=== PATIENT | female | born 1960 | race Caucasian/White ===

== ENCOUNTER → 2020-04-09 13:12 | Outpatient (REF) | payer OTHER, SELFPAY | LOC: ANHLAB 13:12 | PROVIDERS: PCP Family Medicine; Visit Provider Nurse Practitioner Family | DX: D49.2 Neoplasm of unspecified behavior of bone, soft tissue, and skin (principal); D18.01 Hemangioma of skin and subcutaneous tissue | CPT/HCPCS: 88305 ==

== ENCOUNTER 2021-01-06 07:47 | Outpatient (CLI) | payer OTHER, SELFPAY ==
--- NOTE | ~2021-01-06 | DEXA_ITS ---
Bone Density Report Name: Lila Galloway Age: 60 Sex: Female Ethnicity: White Date of : 1960 Indication: postmenopausal; hysterectomy; Referring Provider: ANGELIKA FRAGA Study: Bone densitometry was performed. Exam Date: January 06, 2021 Accession number: [id number] Bone Density: Region BMD T-score Z-score Classification AP Spine (L1-L4) 1.244 1.8 3.1 Normal Femoral Neck (Left) 0.837 -0.1 1.1 Normal Total Hip (Left) 1.055 0.9 1.8 Normal Total Hip Bilateral Avg 1.051 0.9 1.8 Normal Femoral Neck (Right) 0.766 -0.7 0.5 Normal Total Hip (Right) 1.046 0.9 1.7 Normal World Health Organization criteria for BMD impression classify patients as: Normal (T-score at or above -1.0), Osteopenia (T-score between -1.0 and -2.5), or Osteoporosis (T-score at or below -2.5). 10-year Fracture Risk: FRAX not reported because: All T-scores for Spine Total, Hip Total, Femoral Neck at or above -1.0 Previous Exams: Region Exam Age BMD T-score BMD Change BMD Change Date g/cm2 vs Baseline vs Previous AP Spine(L1-L4) 01/06/2021 60 1.244 1.8 0.033(2.7%)# 0.015(1.3%) 07/04/2015 54 1.228 1.6 0.017(1.4%)# 0.017(1.4%)# 05/03/2013 52 1.211 1.5 Total Hip(Left) 01/06/2021 60 1.055 0.9 0.013(1.2%)# 0.024(2.3%) 07/04/2015 54 1.031 0.7 -0.011(-1.0%)# -0.011(-1.0%)# 05/03/2013 52 1.042 0.8 Total Hip(Right) 01/06/2021 60 1.046 0.9 -0.022(-2.1%)# 0.036(3.6%)* 07/04/2015 54 1.010 0.6 -0.058(-5.5%)# -0.058(-5.5%)# 05/03/2013 52 1.068 1.0 *Denotes significance at 95% confidence level, LSC for AP Spine = 0.022 g/cm2, LSC for Total Hip = 0.027 g/cm2 Clinical Information Provided by Patient: Has used the following medications: Vitamin D, BIODEGRADABLE HRT Has the following medical conditions: Hysterectomy Patient maximum height was 63.5 Menopause Age: 44 Drinks caffeinated beverages Onset of menses at age 14 Number of children 0 Impression: The patient has normal bone mass. No significant bone loss was observed. Discussion: BONE DENSITY IS ABOVE THE MINIMUM DESIRABLE LEVEL AT ALL SKELETAL SITES TESTED. This patient?s bone mineral density is above the minimum desirable level (T-score -1.0 or better) at all sites measured. The patient should follow a healthful lifestyle (good nutrition with adequate calcium and vitamin D, and appropriate weight-bearing exercise). Follow-Up: Consider repeating this study in 5
--- NOTE | ~2021-01-06 | MM_ITS ---
EXAMINATION: MM screening margarito BI w jamilah HISTORY: Screening mammogram TECHNIQUE: Craniocaudal and mediolateral oblique 3-D tomosynthesis images were obtained and synthetic 2-D images were generated. CAD analysis was submitted and interpreted. COMPARISON: 08/08/2019, 08/08/2018, 07/18/2017 bilateral digital screening mammogram examinations BREAST PARENCHYMAL COMPOSITION: There are scattered areas of fibroglandular density. FINDINGS: There is no evidence of suspicious mass, calcification, or architectural distortion to sugg est malignancy in either breast. There has been no suspicious interval change. IMPRESSION: 1. No mammographic evidence of malignancy. 2. Recommend routine screening mammography in one year. BI-RADS Category 1: Negative Reviewed, dictated and finalized at location A.
== END 2021-01-06 07:48 | disposition home or self-care (01) ==
LOC: ANHIMG 07:50
PROVIDERS: PCP Family Medicine; Visit Provider Obstetrics & Gynecology Gynecology
DX: Z12.31 Encounter for screening mammogram for malignant neoplasm of breast (principal); Z13.820 Encounter for screening for osteoporosis
CPT/HCPCS: 77063; 77067; 77080

== ENCOUNTER 2021-07-15 08:25 | Outpatient (CLI) | payer OTHER, SELFPAY ==
--- NOTE | ~2021-07-15 | XR_ITS ---
EXAMINATION: XR chest 2V DATE: 07/15/2021 08:47 INDICATION: Cough TECHNIQUE: PA and lateral views of the chest are obtained. COMPARISON: 09/13/2018 FINDINGS: The lungs are free of acute opacities. There is no pleural effusion or pneumothorax. The ca rdiomediastinal silhouette is normal. There is moderate thoracic spondylosis. IMPRESSION: 1. No acute cardiopulmonary abnormality. Reviewed, dictated and finalized at location B.
== END 2021-07-15 08:26 | disposition home or self-care (01) ==
LOC: ANHIMG 08:29
PROVIDERS: PCP Family Medicine; Visit Provider Nurse Practitioner Family
DX: R05.9 Cough, unspecified (principal)
CPT/HCPCS: 71046

== ENCOUNTER → 2021-10-27 10:24 | Outpatient (CLI) | payer OTHER, SELFPAY ==
--- NOTE | ~2021-10-27 | XR_ITS ---
XR cervical spine min 6V DATE: 10/27/2021 10:36 INDICATION: Neck pain TECHNIQUE: AP, open-mouth, lateral, swimmer's views. Flexion and extension lateral views COMPARISON: None FINDINGS: There is straightening of the cervical spine. C1 and C2 are normally aligned and the odontoid process is intact. No fracture or dislocation or lock ed facet or prevertebral soft tissue swelling. No cervical instability on flexion or extension. There is mild loss of height at C5-6 interspace. IMPRESSION: Straightening of cervical spine. Mild loss of interspace height at C5-6 Reviewed, dictated and finalized at location B. DECORATOR
== END ==
PROVIDERS: Visit Provider Family Medicine
DX: M54.2 Cervicalgia (principal)
CPT/HCPCS: 72052

== ENCOUNTER 2022-02-19 08:14 | Outpatient (CLI) | payer OTHER, SELFPAY ==
--- NOTE | ~2022-02-19 | MM_ITS ---
EXAMINATION: MM screening margarito BI w jamilah HISTORY: Screening mammogram, family history of breast cancer in her mother. TECHNIQUE: Craniocaudal and mediolateral oblique 3-D tomosynthesis images were obtained and synthetic 2-D images were generated. CAD analysis was submitted and interpreted. COMPARISON: Prior mammograms dating back to 07/13/2016 BREAST PARENCHYMAL COMPOSITION: There are scattered areas of fibroglandular density. FINDINGS: There is no suspicious mass, calcification, or architectural distortion to suggest malignan cy in either breast. There has been no suspicious interval change. IMPRESSION: 1. No mammographic evidence of malignancy. 2. Recommend routine screening mammography in one year. BI-RADS Category 1: Negative Reviewed, dictated and finalized at location A.
== END 2022-02-19 08:15 | disposition home or self-care (01) ==
LOC: ANHIMG 08:16
PROVIDERS: PCP Family Medicine; Visit Provider Obstetrics & Gynecology Gynecology
DX: Z12.31 Encounter for screening mammogram for malignant neoplasm of breast (principal)
CPT/HCPCS: 77063; 77067

== ENCOUNTER 2023-02-23 15:07 | Outpatient (CLI) | payer OTHER, SELFPAY ==
--- NOTE | ~2023-02-23 | MM_ITS ---
EXAMINATION: MM screening margarito BI w jamilah HISTORY: Screening mammogram TECHNIQUE: Craniocaudal and mediolateral oblique 3-D tomosynthesis images were obtained and synthetic 2-D images were generated. CAD analysis was submitted and interpreted. COMPARISON: 02/19/2022, 01/06/2021, 08/08/2019 bilateral screening mammogram examinations BREAST PARENCHYMAL COMPOSITION: There are scattered areas of fibroglandular density. FINDINGS: There is no evidence of suspicious mass, calcification, or architectural distortion to sugg est malignancy in either breast. There has been no suspicious interval change. IMPRESSION: 1. No mammographic evidence of malignancy. 2. Recommend routine screening mammography in one year. BI-RADS Category 1: Negative Reviewed, dictated and finalized at location A.
== END 2023-02-23 15:08 | disposition home or self-care (01) ==
LOC: ANHIMG 15:07
PROVIDERS: PCP Family Medicine; Visit Provider Obstetrics & Gynecology Gynecology
DX: Z12.31 Encounter for screening mammogram for malignant neoplasm of breast (principal)
CPT/HCPCS: 77063; 77067

== ENCOUNTER 2023-06-20 09:47 | Outpatient (CLI) | payer OTHER, SELFPAY ==
--- NOTE | ~2023-06-20 | XR_ITS ---
EXAMINATION: XR lumbar spine 6V w bending DATE: 06/20/2023 12:16 INDICATION: Low back pain, unspecified. TECHNIQUE: 7 views of lumbar spine including flexion and extension views were obtained. COMPARISON: None. FINDINGS: There is 3 degrees dextrocurvature of thoracolumbar spine. There is no abnormal motion with flexion or extension. Vertebral body heights are normal. Intervertebral disc heights are normal. The re are endplate osteophytes at multiple levels. There is multilevel facet joint osteoarthritis, sever e bilaterally at L4-L5 and L5-S1. IMPRESSION: 1. Mild lumbar spondylosis. Reviewed, dictated and finalized at location A. IMPRESSION: 1. Mild lumbar spondylosis.
== END 2023-06-20 09:48 | disposition home or self-care (01) ==
LOC: ANHIMG 09:50
PROVIDERS: PCP Family Medicine; Visit Provider Family Medicine
DX: M43.06 Spondylolysis, lumbar region (principal)
CPT/HCPCS: 72114

== ENCOUNTER 2023-07-21 09:48 | Day surgery (SDC) | payer OTHER, SELFPAY ==
[2023-07-01 14:47] VITALS: BMI 26.5
[2023-07-05 14:43] VITALS: BMI 26.5
--- NOTE | 2023-07-20 14:09 | PM.HPGS ---
History of Present Illness History of Present Illness Consent: Risks, benefits, and alternatives have been discussed and questions answered. Patient agrees to proceed with procedure. Chief complaint: Z86.010 Personal history of colon polyps Narrative: Lila Galloway is a 62 year old female referred for colon cancer screening. 5 years ago. She had a polyp removed about 10 years ago. Review of Systems Review of Systems: All systems reviewed & are unremarkable except as noted in HPI and below PMFSH Past Medical History Medical History BMI 27.0-27.9,adult Diabetes type 2, controlled Dysmetabolic syndrome X Elevated liver function tests Gastro-esophageal reflux disease without esophagitis Hypertension Hypothyroidism Insomnia Low back pain Major depression Mixed hyperlipidemia Onychomycosis PSVT (paroxysmal supraventricular tachycardia) Right lateral epicondylitis Screen for colon cancer Tachycardia Surgical History Surgical History History of cosmetic plastic surgery 2005 History of hysterectomy 2003 Family History Family History Father Hypertension Alzheimer's disease Mother Hypertension Breast cancer Living in assisted living Sibling No problems noted. 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 Gender identity (if verbalized by the patient): Female Spiritual care concerns: No Meds Home Medications and Allergies Home Medications Medication Instructions Recorded Confirmed Type cholecalciferol (vitamin D3) 25 25 mcg PO DAILY 01/29/22 07/05/23 History mcg (1,000 unit) capsule coenzyme Q10 30 mg capsule (CoQ-10) See Rx Instructions PO DAILY 01/29/22 07/05/23 History phosphatidylcholine 1,200 mg 1 cap PO DAILY 01/29/22 07/05/23 History capsule ezetimibe 10 mg tablet (Zetia) 10 mg PO DAILY #90 tabs 12/09/22 07/05/23 Rx metoprolol succinate 25 mg See Rx Instructions .Route 01/28/23 07/05/23 Rx tablet,extended release 24 hr .COMPLEX #90 tabs thyroid (pork) 90 mg tablet (PATROL OFFICER 180 mg PO DAILY #180 tabs 05/06/23 07/05/23 Rx Thyroid) cyclobenzaprine 10 mg tablet 10 mg PO QHS #30 tabs 06/20/23 07/05/23 Rx metformin 500 mg tablet,extended 2,000 mg PO DAILY 07/05/23 History release 24 hr meloxicam 15 mg tablet 15 mg PO DAILY #90 tabs 07/17/23 Rx Allergies Allergy/AdvReac Type Severity Reaction Status Date / Time No Known Allergies Allergy Verified 07/21/23 11:19 Exam Const: General: alert Orientation/consciousness: patient oriented x3 Resp: Auscultation: clear to auscultation bilaterally Cardio: Rhythm: regular rhythm GI: GI Palp: Yes Soft to palpation and No Tenderness to palpation present (GI) Neuro: General: patient oriented x3 Assessment and Plan Assessment and plan (1) Encounter for screening colonoscopy: Code(s): Z12.11 - Encounter for screening for malignant neoplasm of colon Status: Acute Assessment and Plan: Colonoscopy with possible biopsy or polypectomy or cautery or injection of substances.
--- NOTE | 2023-07-21 08:09 | WPDANESEPPF ---
Anes - Initial Pre Proc Eval Procedure: Operation Date: 07/21/23 12:30 Proposed Procedures p Diagnostic Colonoscopy - Jake Hawk MD Date/Time: 07/21/23 08:09 Surgeon: Jake Hawk MD Pre Op Diagnosis: Z86.010 Personal history of colon polyps Patient Data Age: 62 Gender: F Height: 1.6 m Weight: 68 kg Allergies Allergy/AdvReac Type Severity Reaction Status Date / Time No Known Allergies Allergy Verified 07/21/23 11:19 Home Medications Medication Instructions Recorded Confirmed Type cholecalciferol (vitamin D3) 25 25 mcg PO DAILY 01/29/22 07/05/23 History mcg (1,000 unit) capsule coenzyme Q10 30 mg capsule (CoQ-10) See Rx Instructions PO DAILY 01/29/22 07/05/23 History phosphatidylcholine 1,200 mg 1 cap PO DAILY 01/29/22 07/05/23 History capsule ezetimibe 10 mg tablet (Zetia) 10 mg PO DAILY #90 tabs 12/09/22 07/05/23 Rx metoprolol succinate 25 mg See Rx Instructions .Route 01/28/23 07/05/23 Rx tablet,extended release 24 hr .COMPLEX #90 tabs thyroid (pork) 90 mg tablet (FURNITURE LUMBER PRODUCTION WORKER 180 mg PO DAILY #180 tabs 05/06/23 07/05/23 Rx Thyroid) cyclobenzaprine 10 mg tablet 10 mg PO QHS #30 tabs 06/20/23 07/05/23 Rx metformin 500 mg tablet,extended 2,000 mg PO DAILY 07/05/23 History release 24 hr meloxicam 15 mg tablet 15 mg PO DAILY #90 tabs 07/17/23 Rx Patient hx anesthesia problems: none Family hx anesthesia problems: none Results Review: All pre-operative results and documents have been reviewed as part of the pre-operative evaluation. [facility] Past Medical History Medical History (Updated 07/21/23 @ 08:10 by Tyree Beaver DO) BMI 27.0-27.9,adult Diabetes type 2, controlled Dysmetabolic syndrome X Elevated liver function tests Gastro-esophageal reflux disease without esophagitis Hypertension Hypothyroidism Insomnia Low back pain Major depression Mixed hyperlipidemia Onychomycosis PSVT (paroxysmal supraventricular tachycardia) Right lateral epicondylitis Screen for colon cancer Tachycardia Surgical History Surgical History History of cosmetic plastic surgery 2006 History of hysterectomy 2004 Family History Family History Father Hypertension Alzheimer's disease Mother Hypertension Breast cancer Living in assisted living Sibling No problems noted. 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 Informed Consent: The patient's anesthetic plan and its attendant risks and benefits were discussed with the patient/family/POA. Questions were solicited and answers
[2023-07-21 11:21] VITALS: BP 162/109; PULSE 86; RESP 17; TEMP 36.9; O2SAT 99; BMI 26.0
[2023-07-21] MEDS: LACTATED RINGERS 1,000 ML 150 ML IV CONT (11:38)
[2023-07-21 11:39] LABS: Glucose Point of Care 97 mg/dl (65-105)
[2023-07-21 12:19] VITALS: BP 113/79; PULSE 87; RESP 18; O2SAT 100
[2023-07-21 12:29] VITALS: BP 133/91; PULSE 86; RESP 18; O2SAT 100
--- NOTE | 2023-07-21 12:32 | WPDANESPN ---
Anes - Prog Note Post-Op Date/Time: 07/21/23 12:32 Cardiovascular status: normal Respiratory status: normal Airway patency: baseline Mental status: baseline Post-Op hydration status: normal Vital Signs: Last Vital Signs Temp 36.9 C 07/21/23 11:21 Pulse 87 07/21/23 12:19 Resp 18 07/21/23 12:19 BP 113/79 07/21/23 12:19 Pulse Ox 100 07/21/23 12:19 O2 Del Method Room Air 07/21/23 12:19 Pain Score (VAS): 0 I/O: Intake & Output 07/20/23 07/21/23 07/21/23 23:59 07:59 15:59 Intake Total 500 Balance 500 07/21/23 11:37 POC Capillary Glucose 97 Post-procedural complaints: none Patient Feedback: Patient satisfied with anesthetic care. Other Findings: Patient vital signs back to baseline. Patient denies nausea and vomiting. Patient's pain under control. Patient OK for discharge.
[2023-07-21 12:39] VITALS: BP 135/92; PULSE 80; RESP 20; O2SAT 100
== END 2023-07-21 12:50 | disposition home or self-care (01) ==
PROVIDERS: PCP Family Medicine; Visit Provider Internal Medicine Gastroenterology
PROC: 0DJD8ZZ Inspection of Lower Intestinal Tract, Via Natural or Artificial Opening Endoscopic (ICD-10-PCS; CPT 45378; principal; 2023-07-21 12:30)
DX: Z86.010 Personal history of colon polyps (principal); K57.30 Diverticulosis of large intestine without perforation or abscess without bleeding
CPT/HCPCS: 45378

== ENCOUNTER 2024-03-01 07:30 | Outpatient (CLI) | payer OTHER, SELFPAY ==
--- NOTE | ~2024-03-01 | MM_ITS ---
EXAMINATION: MM screening margarito BI w jamilah HISTORY: Screening TECHNIQUE: Craniocaudal and mediolateral oblique 3-D tomosynthesis images were obtained and synthetic 2-D images were generated. CAD analysis was submitted and interpreted. COMPARISON: Comparison to multiple prior studies sequentially, with oldest reviewed study dated 02/2017. BREAST PARENCHYMAL COMPOSITION: Not dense: There are scattered areas of fibroglandular density. FINDINGS: There is no evidence of suspicious mass, calcification, or architectural distortion to sugg est malignancy in either breast. There has been no suspicious interval change. IMPRESSION: 1. No mammographic evidence of malignancy. 2. Recommend routine screening mammography in one year. BI-RADS Category 1: Negative Reviewed, dictated and finalized at location B.
== END 2024-03-01 07:31 | disposition home or self-care (01) ==
LOC: ANHIMG 07:36
PROVIDERS: PCP Family Medicine; Visit Provider Obstetrics & Gynecology Gynecology
DX: Z12.31 Encounter for screening mammogram for malignant neoplasm of breast (principal)
CPT/HCPCS: 77063; 77067

== ENCOUNTER 2024-05-15 07:51 | Outpatient (CLI) | payer OTHER, SELFPAY ==
--- NOTE | ~2024-05-15 | DEXA_ITS ---
Bone Density Report Name: LUDIVINA RODRIGUEZ Age: 63 Sex: Female Ethnicity: White Date of : 1960 Indication: postmenopausal; screening for osteoporosis; history of glucocorticoids; hysterectomy; Referring Provider: LAURA, YVES Study: Bone densitometry was performed. Exam Date: May 15, 2024 Accession number: [id number] Bone Density: Region BMD T-score Z-score Classification AP Spine(L1-L4) 1.223 1.6 3.1 Normal Femoral Neck (Left) 0.865 0.1 1.5 Normal Total Hip (Left) 1.070 1.1 2.1 Normal Femoral Neck (Right) 0.775 -0.7 0.7 Normal Total Hip (Right) 1.103 1.3 2.3 Normal Total Hip Mean 1.087 1.2 2.2 Normal World Health Organization criteria for BMD impression classify patients as: Normal (T-score at or above -1.0), Osteopenia (T-score between -1.0 and -2.5), or Osteoporosis (T-score at or below -2.5). 10-year Fracture Risk: FRAX not reported because: All T-scores for Spine Total, Hip Total, Femoral Neck at or above -1.0 Clinical Information Provided by Patient: Has taken Glucocorticoids Has used the following medications: Vitamin D Has the following medical conditions: Hysterectomy Patient maximum height was 64 Menopause Age: 34 Drinks caffeinated beverages Onset of menses at age 15 Number of children 0 Impression: The patient has normal bone mass. The patient has risk factors, including: history of glucocorticoid therapy. Discussion: BONE DENSITY IS ABOVE THE MINIMUM DESIRABLE LEVEL AT ALL SKELETAL SITES TESTED. This patient?s bone mineral density is above the minimum desirable level (T-score -1.0 or better) at all sites measured. The patient should follow a healthful lifestyle (good nutrition with adequate calcium and vitamin D, and appropriate weight-bearing exercise). Follow-Up: Consider repeating this study in 5 years or sooner if there is some new clinical indication. Reported by: KATERIN on 05/15/2024 8:29:00 AM. Reviewed, dictated and finalized at location Patel ACOSTA
== END 2024-05-15 07:52 | disposition home or self-care (01) ==
PROVIDERS: PCP Family Medicine; Visit Provider Nurse Practitioner Women's Health
DX: Z13.820 Encounter for screening for osteoporosis (principal); Z78.0 Asymptomatic menopausal state
CPT/HCPCS: 77080

== ENCOUNTER 2024-09-15 12:16 | Emergency (ER) | payer OTHER, SELFPAY ==
[2024-09-15] VITALS (12 sets, daily range): BP systolic 118–151; BP diastolic 84–107; PULSE 68–133; RESP 16–120; TEMP 36.4–36.8; O2SAT 98–100
--- NOTE | ~2024-09-15 | XR_ITS ---
XR chest 1V portable Ordering provider: Jacobo Lua MD History: 63 years Female with . AFib with RVR . Comparison: July 15, 2021 FINDINGS: MEDIASTINUM: The cardiac silhouette is not enlarged. LUNGS: No infiltrates, effusions or pneumothorax. Haziness in the left lung. OTHER: No free air under the diaphragm. Degenerative the spine. IMPRESSION: Haziness in the left hemithorax is noted. No definite acute cardiopulmonary pathology. Reviewed, dictated and finalized at location A. WRAPPER MACHINE OPERATOR IMPRESSION: Haziness in the left hemithorax is noted. No definite acute cardiopulmonary pat hology.
--- NOTE | 2024-09-15 12:17 | ECG_ITS ---
Test Date: 2024-09-15 15:26:37 Measurements Intervals [place] Rate: 77 P: 45 TN: 127 QRS: 35 QRSD: 91 T: 55 QT: 346 QTc: 392 Interpretive Statements SINUS RHYTHM POSSIBLE LEFT ATRIAL ENLARGEMENT [-0.1mV P-WAVE IN V1/V2] No previous ECG available for comparison Electronically Signed On 09-19-2024 15:50:[address] JUDGE by Monique Turcios M.D.
--- NOTE | 2024-09-15 12:30 | ED_ITS ---
HPI - Arrhythmia/Palpitations General Chief Complaint: Arrhythmia/Palpitations Stated Complaint: afib Time Seen by Provider: 09/15/24 12:27 Source: patient Mode of arrival: ambulatory Limitations: no limitations History of Present Illness HPI narrative: Fifty 63 years old white female with history of AFib on metoprolol 25 mg once a day came to the ED by private car from home complaining of intermittent spells of fast heartbeat since last night. She denies aggravating or relieving factors. She denies any shortness of breath or chest pain or fever or chills or nausea or vomiting or back pain or abdominal pain. History of borderline diabetes, hypothyroidism and atrial fibrillation. Related Data Home Medications ?Medication ?Instructions ?Recorded ?Confirmed ?Last Taken ?Type cholecalciferol (vitamin D3) 25 25 mcg PO DAILY 01/29/22 06/25/24 Unknown History mcg (1,000 unit) capsule coenzyme Q10 30 mg capsule (CoQ-10) See Rx Instructions PO DAILY 01/29/22 06/25/24 Unknown History Allergies Allergy/AdvReac Type Severity Reaction Status Date / Time No Known Allergies Allergy Verified 06/25/24 08:01 Review of Systems 2 Review of Systems: All systems reviewed & are unremarkable except as noted in HPI and below PMFSH Past Medical History Medical History (Updated 09/15/24 @ 16:52 by Jacobo Lua MD) Paroxysmal supraventricular tachycardia Lumbar spondylosis Alcohol abuse Diabetes type 2, controlled Hypertension Major depression Screen for colon cancer Insomnia Dysmetabolic syndrome X Gastro-esophageal reflux disease without esophagitis Mixed hyperlipidemia Hypothyroidism Surgical History Surgical History (Updated 09/15/24 @ 15:29 by Yaritza Oleary PA-C) History of colonoscopy History of hysterectomy (2003) History of cosmetic plastic surgery (2005) Family History Family History Father Hypertension Alzheimer's disease Mother Hypertension Breast cancer Living in assisted living Sibling No problems noted. Other Atrial fibrillation Diabetes mellitus Social History Social History (Updated 09/15/24 @ 15:30 by Yaritza Oleary PA-C) Social History: Surrogate medical decision maker: Uzair Galloway, spouse. Code status: Full code. Smoking status: Former smoker Second hand tobacco smoke exposure: No Smoking end date: 03/17/10 Alcohol intake: current Substance use: current Substance use type: marijuana Other substance usage details: gummies Do You Feel Safe in your Home?: Yes Lack of Transportation: No Lack of Food: Never True Current Housing: I Have Housing Concerned About Future Housing: No Difficulty Paying Gas/Electric Bills: No Difficulty Paying for Meds: No Currently Unemployed: No Education: Associate Degree Difficulty w/ Childcare or Family Care: No Living arrangements: with family Additional living arrangements comments: Lives with spouse in [place] 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 Spiritual care concerns: No Exam 2 Narrative: General appearance: Well-developed, well-nourished Skin: Normal color Head: Normocephalic, nontraumatic Eyes: Clear conjunctiva ENT: Oropharynx normal, ears normal, nose normal Neck: Supple, nontender Chest and respiratory: Airway patent, no respiratory distress, no accessory muscle use Heart: Tachycardia, irregular irregularity Abdomen: Soft, nontender, no organomegaly, quiet bowel sounds Vascular: Normal peripheral pulses, normal capillary refill. Musculoskeletal: Normal range of motion, nontender back Neurologic: Alert and oriented ?3, SQUARE CUTTER is normal as tested, no gross motor deficit Course Vital Signs Vital signs: Vital Signs Temperature 36.8 C 09/15/24 12:19 Pulse Rate 68 09/15/24 12:19 Respiratory Rate 120 H 09/15/24 12:19 Blood Pressure 144/97 H 09/15/24 12:19 Pulse Oximetry 100 09/15/24 12:19 Oxygen Delivery Room Air 09/15/24 12:19 Temperature 36.7 C 09/15/24 16:39 Pulse Rate 86 09/15/24 16:46 Respiratory Rate 17 09/15/24 16:39 Blood Pressure 134/89 09/15/24 16:46 Pulse Oximetry 100 09/15/24 16:39 Oxygen Delivery Room Air 09/15/24 12:19 MDM - Arrhythmia/Palpitations MDM Narrative Medical decision making narrative: Patient came with AFib with RVR, history of atrial fibrillation on metoprolol Vital signs showing heart rate of 159 beats per minute AFib with RVR Physical examination consistent was tachycardia Differential diagnose AFib with RVR, hyperthyroidism, coronary artery disease, electrolyte imbalance, anxiety like symptoms EKG on arrival showing AFib with RVR at 159 beats per minute Chest x-ray showed Blood workup today includes CBC, CMP, TSH, troponin, PT PTT showed Patient started on Cardizem bolus and drip immediately on arrival to the ED Patient converted to normal sinus rhythm Patient was able to walk inside the ER without any complain, monitor is still showing normal sinus rhythm. Patient was admitted to the hospitalist, the admission canceled patient will be discharged home on Lopressor 25 b.i.d. instead of 25 once a day. And follow-up with her family physician. Patient also advised to take 1 baby aspirin once a day. Differential Diagnosis Differential diagnosis: Likely palpitations, anxiety and artial fibrillation Medical Records Attestation: I reviewed the patient's medical records. Lab Data Attestation: I reviewed the patient's lab results. 09/15/24 13:10 09/15/24 15:40 Labs: Lab Results 09/15/24 09/15/24 Range/Units 13:10 15:40 WBC 3.8 L (4.5-10.0) K/mm3 RBC 4.90 (4.2-5.4) M/mm3 Hgb 14.9 (12.0-15.0) g/dL Hct 41.4 (37.0-47.0) % MCV 84.5 (80-100) fl MCH 30.4 (26-34) pg MCHC 36.0 (32-36) g/dl RDW 12.1 (11.5-14.5) % Plt Count 261 (150-375) k/mm3 MPV 10.3 (7.4-10.4) fl Immature Gran % (Auto) 0.3 (0-0.5) % Neut % (Auto) 43.4 L (45.5-73.1) % Lymph % (Auto) 44.5 H (18.3-44.2) % [place] % (Auto) 8.9 H (2.6-8.5) % Eos % (Auto) 1.8 (0-4.4) % Baso % (Auto) 1.1 (0.2-1.2) % Lymph # (Auto) 1.69 (0.9-3.2) K/mm3 [place] # (Auto) 0.3 (0.1-0.6) K/mm3 Eos # (Auto) 0.1 (0-0.3) K/mm3 Baso # (Auto) 0.0 (0.0-0.1) K/mm3 Abs Immat Gran (auto) 0.01 (0.00-0.031) K/mm3 Absolute Neuts (auto) 1.7 (1.3-6.7) K/mm3 Absolute Nucleated RBC 0.000 (0.0-0.012) K/mm3 Nucleated RBC % 0.0 (0.0-0.2) % PT 12.6 (11.1-14.7) Seconds INR 0.9 APTT 25.9 (22.3-36.8) Seconds Sodium 140 (137-145) mmol/L Potassium 3.8 (3.4-5.0) mmol/L Chloride 110 H (98-107) mmol/L Carbon Dioxide 25 (22-30) mmol/L Anion Gap 5 (4-12) mmol/L BUN 5 L (7-17) mg/dL Creatinine 0.60 L (0.7-1.0) mg/dL Estim Creat Clear Calc Not Reportable Estimated GFR > 60 (59 - ) Glucose 106 (65-110) mg/dL Calcium 9.5 (8.4-10.2) mg/dL Total Bilirubin 1.0 (0.2-1.3) mg/dL AST 57 H (14-36) U/L ALT 62 H (6-35) U/L Alkaline Phosphatase 64 (38-126) U/L Troponin I < 0.012 (0.000-0.034) ng/mL NT-Pro-B Natriuret Pep 1810 H (19.9-100) pg/mL Total Protein 7.0 (6.3-8.2) g/dL Albumin 4.4 (3.5-5.1) g/dL TSH < 0.015 L (0.465-4.680) uIU/mL Discharge Plan Discharge Clinical Impression: Atrial fibrillation, Normal sinus rhythm Patient Disposition: Home, Self-Care Condition: Improved Instructions: Antibiotic Form Patient Language: Turkish Prescriptions: New metoprolol tartrate [Lopressor] 50 mg tablet 25 mg PO Q12H Qty: 60 0RF aspirin 81 mg capsule 81 mg PO DAILY Qty: 30 0RF No Action coenzyme Q10 [CoQ-10] 30 mg capsule See Rx Instructions PO DAILY Rx Instructions: 300 PO daily; cholecalciferol (vitamin D3) 25 mcg (1,000 unit) capsule 25 mcg PO DAILY rosuvastatin 5 mg tablet 5 mg PO DAILY Qty: 90 3RF meloxicam 15 mg tablet 15 mg PO DAILY Qty: 90 1RF semaglutide 2 mg/dose (8 mg/3 mL) pen injector 2 mg subcut WEEKLY Qty: 3 5RF metoprolol succinate 25 mg tablet extended release 24 hr See Rx Instructions .ROUTE .COMPLEX Qty: 90 2RF Dose Instruction: Take 1 tablet by mouth once daily Rx Instructions: Take 1 tablet by mouth once daily thyroid (pork) [[place] Thyroid] 90 mg tablet 180 mg PO DAILY Qty: 180 2RF Follow-up/Referrals: Murphy Cantrell MD [Primary Care Provider] -
[2024-09-15] MEDS: dilTIAZem HCl INJ 25 MG/5 ML VIAL 10 MG IV PUSH (12:49)
[2024-09-15] MEDS: dilTIAZem 100 MG/100 ML 100 MG/100 ML BAG IV CONT (12:59)
[2024-09-15] MEDS: ENOXAPARIN 60 MG/0.6 ML SYRINGE SUB-Q (13:11)
[2024-09-15 14:18] LABS: Thyroid Stimulating Hormone < 0.015 uIU/mL (0.465-4.680)
--- NOTE | 2024-09-15 15:00 | ECG_ITS ---
Test Date: 2024-09-15 15:56:40 Measurements Intervals [place] Rate: 83 P: 29 RI: 123 QRS: 31 QRSD: 102 T: 50 QT: 362 QTc: 428 Interpretive Statements SINUS RHYTHM POSSIBLE LEFT ATRIAL ENLARGEMENT [-0.1mV P-WAVE IN V1/V2] Compared to ECG 09/15/2024 15:26:37 No significant changes Electronically Signed On 09-19-2024 15:51:34 CATERER'S AIDE by Monique Turcios M.D.
--- NOTE | 2024-09-15 15:25 | PM.IMHP ---
H&P: HPI History of Present Illness Date/Time: 09/15/24 15:25 Chief Complaint: Elevated heart rate. Narrative: This is a 63-year-old female with history of paroxysmal supraventricular tachycardia, hypothyroidism, type 2 diabetes mellitus, hyperlipidemia, and daily alcohol use who presented to the emergency department for evaluation of an elevated heart rate. The patient provides the following history. She sees Dr. Lane for history of PSVT and is on metoprolol 25 mg daily. Last night she began having intermittent episodes of racing heart which seemed to be worse this morning and she came in for evaluation. She denies associated shortness of breath, chest pain, syncope, near syncope, sweats, nausea, vomiting, and edema. In the ED: She was in a normal sinus rhythm on arrival but she reportedly went into rapid atrial fibrillation with a rate of 133 not long after. Blood pressures have been running in the 140s to 150s systolic. TSH was less than 0.015. EKG showed Chest x-ray showed haziness in the left hemithorax but no definite acute cardiopulmonary pathology. She was given diltiazem 10 mg IV push with some improvement her rate, was started on a diltiazem drip, and she is being admitted in this setting for further treatment and evaluation. Review of Systems Review of Systems: 12 systems were reviewed and are negative except for as per HPI. [facility] Past Medical History Medical History (Updated 09/15/24 @ 15:36 by Yaritza Oleary PA-C) Paroxysmal supraventricular tachycardia Lumbar spondylosis Alcohol abuse Diabetes type 2, controlled Hypertension Major depression Screen for colon cancer Insomnia Dysmetabolic syndrome X Gastro-esophageal reflux disease without esophagitis Mixed hyperlipidemia Hypothyroidism Surgical History Surgical History (Updated 09/15/24 @ 15:29 by Yaritza Oleary PA-C) History of colonoscopy History of hysterectomy (2003) History of cosmetic plastic surgery (2005) Family History Family History Father Hypertension Alzheimer's disease Mother Hypertension Breast cancer Living in assisted living Sibling No problems noted. Other Atrial fibrillation Diabetes mellitus Social History Social History (Updated 09/15/24 @ 15:30 by Yaritza Oleary PA-C) Social History: Surrogate medical decision maker: Uzair Galloway, spouse. Code status: Full code. Smoking status: Former smoker Second hand tobacco smoke exposure: No Smoking end date: 03/17/10 Alcohol intake: current Substance use: current Substance use type: marijuana Other substance usage details: gummies Do You Feel Safe in your Home?: Yes Lack of Transportation: No Lack of Food: Never True Current Housing: I Have Housing Concerned About Future Housing: No Difficulty Paying Gas/Electric Bills: No Difficulty Paying for Meds: No Currently Unemployed: No Education: Associate Degree Difficulty w/ Childcare or Family Care: No Living arrangements: with family Additional living arrangements comments: Lives with spouse in [place] 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 Spiritual care concerns: No Meds Home Medications and Allergies Home Medications ?Medication ?Instructions ?Recorded ?Confirmed ?Type cholecalciferol (vitamin D3) 25 25 mcg PO DAILY 01/29/22 06/25/24 History mcg (1,000 unit) capsule coenzyme Q10 30 mg capsule (CoQ-10) See Rx Instructions PO DAILY 01/29/22 06/25/24 History meloxicam 15 mg tablet 15 mg PO DAILY #90 tabs 01/06/24 06/25/24 Rx rosuvastatin 5 mg tablet 5 mg PO DAILY #90 tabs 04/10/24 06/25/24 Rx semaglutide 2 mg/dose (8 mg/3 mL) 2 mg (0.75 mL) subcut WEEKLY #3 mL 04/11/24 06/25/24 Rx subcutaneous pen injector metoprolol succinate 25 mg See Rx Instructions .Route 07/03/24 Rx tablet,extended release 24 hr .COMPLEX #90 tabs thyroid (pork) 90 mg tablet 180 mg (2 x 90 mg) PO DAILY #180 09/14/24 Rx ([place] Thyroid) tabs Allergies Allergy/AdvReac Type Severity Reaction Status Date / Time No Known Allergies Allergy Verified 06/25/24 08:01 Vital Signs Vital Signs - 24 hr 09/15/24 12:19 09/15/24 12:39 09/15/24 12:59 Temperature 98.2 F 97.5 F L Pulse Rate 68 133 H 101 H Respiratory Rate 120 H 21 H Blood Pressure 144/97 H 141/90 H 118/85 Pulse Oximetry 100 98 Oxygen Delivery Room Air 09/15/24 14:30 09/15/24 14:32 09/15/24 15:02 Temperature 98.2 F 97.9 F Pulse Rate 121 H 121 H 114 H Respiratory Rate 16 19 Blood Pressure 141/98 H 141/98 H 151/107 H Pulse Oximetry 100 Oxygen Delivery 09/15/24 15:09 Temperature Pulse Rate 116 H Respiratory Rate Blood Pressure 148/102 H Pulse Oximetry Oxygen Delivery Assessment and Plan Assessment and plan (1) Atrial fibrillation with rapid ventricular response: Code(s): I48.91 - Unspecified atrial fibrillation Status: Acute (2) Hypothyroidism: Qualifiers: Hypothyroidism type: acquired Qualified Code(s): E03.9 - Hypothyroidism, unspecified Code(s): E03.9 - Hypothyroidism, unspecified Status: Acute (3) Alcohol abuse: Code(s): F10.10 - Alcohol abuse, uncomplicated Status: Acute (4) Diabetes type 2, controlled: Qualifiers: Diabetes mellitus garde manager insulin use: without garde manager use Diabetes mellitus complication status: without complication Qualified Code(s): E11.9 - Type 2 diabetes mellitus without complications Code(s): E11.9 - Type 2 diabetes mellitus without complications Status: Acute (5) Mixed hyperlipidemia: Code(s): E78.2 - Mixed hyperlipidemia Status: Acute (6) Paroxysmal supraventricular tachycardia: Code(s): I47.10 - Supraventricular tachycardia, unspecified Status: Acute Plan The patient presented to the emergency department for evaluation of an elevated heart rate as detailed in HPI. Labs, imaging, EKG, and all reports were personally reviewed. She was found to be in atrial fibrillation with rates as high as the mid 160s per patient report. She was started on a diltiazem drip in the emergency department with improvement in her rates and she is being admitted in this setting for further treatment and evaluation. She has a history of paroxysmal supraventricular tachycardia but not atrial fibrillation to her knowledge. She is on [place] Thyroid for hypothyroidism though her TSH today is nearly undetectable thus will hold that for now, pending T4. She consumes alcohol daily and she was encouraged to cut back significantly on her alcohol intake which could be predisposing her to this abnormal rhythm. Initiate CIWA protocol. Blood pressures were reviewed and they are stable. Diabetes is well controlled on semaglutide with a recent hemoglobin A1c of less than 6%. Her home medications well be reviewed and resumed as appropriate. Findings and treatment plan were discussed with the patient. Questions were solicited and answered to satisfaction. The patient's medical management will be taken over by the hospitalist team in a.m. Quality VTE Prophylaxis VTE prophylaxis: pharmacologic ordered The patient has been admitted under observation status. Hospitalist [facility] Advance Care Plan I have confirmed that the patient's Advanced Care Plan is present, code status is documented, or surrogate decision maker is listed in patient medical record.: Yes Medication Reconciliation I have utilized all available resources to obtain, update and review the patients current medications (includes all prescriptions, OTC, herbals, cannabis, and nutritional supplements).: Yes
[2024-09-15 15:38] LABS: Basophils Percent Auto 1.1 % (0.2-1.2); Eosinophils Absolute Auto 0.1 K/mm3 (0-0.3); Eosinophils Percent Auto 1.8 % (0-4.4); Hematocrit 41.4 % (37.0-47.0); Hemoglobin 14.9 g/dL (12.0-15.0); Immature Granulocyte Absolute 0.01 K/mm3 (0.00-0.031); Immature Granulocyte Percent A 0.3 % (0-0.5); Lymphocytes Absolute Auto 1.69 K/mm3 (0.9-3.2); Lymphocytes Percent Auto 44.5 % (18.3-44.2); Mean Corpuscular Hemoglobin 30.4 pg (26-34); Mean Corpuscular Volume 84.5 fl (80-100); Mean Platelet Volume 10.3 fl (7.4-10.4); Monocytes Absolute Auto 0.3 K/mm3 (0.1-0.6); Monocytes Percent Auto 8.9 % (2.6-8.5); Neutrophils Absolute Auto 1.7 K/mm3 (1.3-6.7); Neutrophils Percent Auto 43.4 % (45.5-73.1); Platelet Count Result 261 k/mm3 (150-375); Red Cell Distribution Width 12.1 % (11.5-14.5); White Blood Count 3.8 K/mm3 (4.5-10.0)
[2024-09-15 15:53] LABS: INR 0.9; Prothrombin Time 12.6 Seconds (11.1-14.7)
[2024-09-15 15:54] LABS: Partial Thromboplastin Time 25.9 Seconds (22.3-36.8)
[2024-09-15 16:04] LABS: Alanine Aminotransferase 62 U/L (6-35); Albumin Level 4.4 g/dL (3.5-5.1); Alkaline Phosphatase 64 U/L (38-126); Anion Gap 5 mmol/L (4-12); Aspartate Amino Transferase 57 U/L (14-36); Blood Urea Nitrogen 5 mg/dL (7-17); Calcium 9.5 mg/dL (8.4-10.2); Carbon Dioxide 25 mmol/L (22-30); Chloride 110 mmol/L (98-107); Estimated Glomerular Filt Rate > 60; Glucose 106 mg/dL (65-110); Potassium 3.8 mmol/L (3.4-5.0); Sodium 140 mmol/L (137-145)
[2024-09-15 16:15] LABS: NT Pro B Type Natriuretic Pept 1810 pg/mL (19.9-100); Troponin I < 0.012 ng/mL (0.000-0.034)
[2024-09-15] MEDS: METOPROLOL TARTRATE 25 MG TABLET PO (16:45)
--- OUTSIDE RECORDS SUMMARY | 2024-09-22 18:41 | XMS_ITS | Clinical Summary ---
Author Organization [facility] Address [address] [place] [address] Care Team Providers Care Golf Coach Name Role Phone Jno Webb MD Primary Care Provider [phone] Source Comments [facility],non-owned Affiliates and Associated Physician Practices is amultiple site organization consisting of ambulatory clinics and hospital sitesin [place], [place], [place] and [place]. This disclosure is being madepursuant to the Care Everywhere program and may not contain all information available regarding this patient. Last updated 18.[facility] Medications * Be aware that medications may not be up to date on this document. Alwaysverify current medications with the patient. Medication Sig Dispensed Refills Start Date End Date Status traMADol (ULTRAM) 50 MG tablet Take 40 mg by mouth every 6 hours as needed. 1-2 Tablets By Mouth Every 6 Hours as needed Active Social History Tobacco Use Types Packs/Day Years Used Date Smoking Tobacco: Never Assessed Sex and Gender Information Value Date Recorded Sex Assigned at Not on file Gender Identity Not on file Sexual Orientation Not on file Plan of Treatment Health Maintenance Due Date Last Done Comments COLOGUARD (AGES 45-75) - COL ON CA SCREENING 1962 COLON MONITORING 1962 COLONOSCOPY - COLON CA SCREENING 1962 CT COLONOGRAPHY - COLON CA SCREENING 1962 Colorectal Cancer Screening 1962 FIT - COLON CA SCREENING 1962 FLEX SIG - COLON CA SCREENING 1962 LIPID TESTING 1962 MAMMOGRAM 1962 PAP SMEAR 1962 HIV SCREENING 1977 HEPATITIS C SCREENING 10/18/1980 DTAP/TDAP/TD VACCINES (1 - Tdap) 1981 PNEUMOCOCCAL VACCINE 50+ (1 of 1 - PCV) 2012 ZOSTER VACCINE (1 of 2) 2012 COVID-19 VACCINE (1 - 2023-2 5 season) 2024 INFLUENZA VACCINE (#1) 2024 DEPRESSION SCREENING 09/12/2024 Respiratory Syncytial Virus (RSV) Vaccine Pt: or over 60 yrs (1 - 1-dose 75+ series) 2037 HEPATITIS B VACCINE Aged Out No longe r eligible based on patient's age to complete this topic HIB VACCINE Aged Out No longer eligi ble based on patient's age to complete this topic HPV VACCINE Aged Out No longer eligi ble based on patient's age to complete this topic MENINGOCOCCAL (Group B) VACCINE Aged Out No longer eligible based on patient's age to complete this topic MENINGOCOCCAL VACCINE Aged Out No penny wilfredo eligible based on patient's age to complete this topic PNEUMOCOCCAL VACCINE Aged Out No long er eligible based on patient's age to complete this topic Care Teams Golf Coach Relationship Specialty Start Date End Date Jon Webb MD [address] [place] [id number] PCP - General 04/11/20
--- OUTSIDE RECORDS SUMMARY | 2024-09-22 18:41 | XMS_ITS | Patient Health Record ---
Author Organization [facility] Address [address] [place] [address] Care Team Providers Care Medical Receptionist Medical Assistant Name Role Phone Tamia LEHMAN, Murphy Primary Care Provider Unavaila Muriel Lopez Unavailable [phone] ZZ-Migration, Provider Unavailable Unavailab le Allergies No Known Allergies Reason For Referral No Information Medications Medication SIG (Take, Route, Frequency, Duration) Notes Start Date End Date Status METFORMIN 500 mg 1 tab(s) orally 2 times a day Active Biotin 1000 MCG 1 tab(s) orally once a day Active AZELASTINE HYDROCHLORIDE NASAL 137 mcg/inh 2 spray(s) intranasally 2 times a day for 30 day(s) 01/19/2022 Active PREGNENOLONE, 25 G *Please revie w for potential replacement for e-prescription and drug interaction check* Active FELICIA 24 HOUR ALLERGY 180 mg 1 tab(s) orally once a day Active AUVI-Q 0.3 mg 0.3 mg intramuscularly once for 1 dose(s) Active COQ10 300 mg 1 cap(s) orally once a day Active VITAMIN D3 2000 intl units 1 tab(s) orally once a day Active BIOTIN 1000 mcg 1 tab(s) orally once a day Active ARMOUR THYROID 60 mg 1 tab(s) orally onc e a day Active ATORVASTATIN 20 mg 1 tab(s) orally once a day Active NASACORT ALLERGY 24HR 55 mcg/inh 2 spray(s) intranasally once a day for 30 day(s) Active NASAL WASHES N/A DIRECTED INTRANASALLY NEEDED for 30 *Please review for potential replacement for e-prescription and drug interaction check* Active SIT (TRADITIONAL) VARIABLE PER SCHEDULE SC PER SCHEDULE for TO BE DETERMINED *Please review for potential replacement for e-prescription and drug interaction check* Active metFORMIN HCl 500 MG 1 tab(s) orally 2 times a day Active Felicia Allergy 180 MG 1 tab(s) orally once a day Active Auvi-Q 0.3 MG/0.3ML 0.3 mg intramuscularly once for 1 dose(s) Active Coenzyme Q10 300 MG 1 cap(s) orally once a day Active Azelastine HCl 137 MCG/SPRAY 2 spray(s) intranasally 2 times a day for 30 day(s) 01/19/2022 Active SIT (TRADITIONAL) VARIABLE PER SCHEDULE SC PER SCHEDULE for TO BE DETERMINED *Please review for potential replacement for e-prescription and drug interaction check* Active Vitamin D3 50 MCG (1999 UT) 1 tab(s) orally once a day Active Holland Thyroid 60 MG 1 tab(s) orally onc e a day Active Atorvastatin Calcium 20 MG 1 tab(s) orally once a day Active Nasacort Allergy 24HR 55 MCG/ACT 2 spray(s) intranasally once a day for 30 day(s) Active Immunizations Vaccine Route Administration Date Status Comme nts Influenza Unknown 12/13/2018 Refused Covid 19 (Epi & Epi) Unknown 11/20/2020 Adminis tered Social History Tobacco Use: Social History Observation Description Date Details (start date - stop date) Former Smoker NA - NA Smoking Smart Form: Question Answer Notes Are you a: former smoker How long it has been since you last smoked? 5-10 years Problems Problem Type SNOMED Code ICD Code Onset Dates Problem Status W/U Status Risk Notes Problem Chronic allergic conjunctivitis (13889163) Other chronic allergic conjunctivitis (H10.45) Active confirmed Problem Otalgia, left ea r (H92.02) Active confirmed Problem Allergic rhinitis caused by pollen (disorder) (72818310) Allergic rhinitis due to pollen (J30.1) Active confirmed Problem Allergic rhinitis caused by animal hair and dander (524243615813992) Allergic rhinitis due to animal (cat) (dog) hair and dander (J30.81) Active confirmed Problem Allergic rhinitis (27930015) Other allergic rhinitis (J30.89) Active confirmed Problem Elevated blood pressure reading without diagnosis of hypertension (297568215) Elevated blood-pressure reading, without diagnosis of hypertension (R03.0) Active confirmed Problem Allergic rhinitis caused by pollen (disorder) (92777200) Allergic rhinitis due to pollen (J30.1) Active confirmed Problem Allergic rhinitis caused by animal hair and dander (503872675870425) Allergic rhinitis due to animal (cat) (dog) hair and dander (J30.81) Active confirmed Problem Allergic rhinitis (95250018) Other allergic rhinitis (J30.89) Active confirmed Problem Chronic allergic conjunctivitis (80208141) Other chronic allergic conjunctivitis (H10.45) Active confirmed Encounters Encounter Location Date Provider Diagnosis [facility] - [address] [address] 02/25/2024 Provider Cassi Allergic rhinitis due to pollen J30.1 and Chronic cough R05.3 Assessments Encounter Date Diagnosis (ICD Code) Assessment Notes Treatment Notes Treatment Clinical Notes Section Notes 02/25/2024 Allergic rhinitis due to pollen (ICD-10 - J30.1) 02/25/2024 Chronic cough (ICD-10 - R05.3) Plan Of Treatment Pending Test Test Name Order Date X ray : Chest 01/19/2022 Insurance Providers Payer Name Payer Address Payer Phone Subscriber Number Group Number Insured Name Patient Relationship to Insured Coverage Start Date Coverage End Date [facility] [address] [address] [place] [address] [phone] [id number] Lila Galloway Self - patient is the insured Medical (General) History Medical History History ICD Code Type 2 diabetes mellitus without complic ations Hyperlipidemia, unspecified Hypothyroidism, unspecified Allergic rhinitis due to pollen Allergic rhinitis due to animal (cat) (d og) hair and dander Other allergic rhinitis Other chronic allergic conjunctivitis Surgical History Surgery Date(Month/Year) Foot (broken bone) 01/11/2000 Knee (laser for pain) 01/10/1998 Tubal ligation 01/10/2002 Hysterectomy (fibroid) 01/11/2004 Hand (arthritis) 01/10/2011 Foot (arthritis) 01/10/2014
--- OUTSIDE RECORDS SUMMARY | 2024-09-22 18:41 | XMS_ITS | Referral Summary ---
Author Organization [facility] Address [address] [place] [address] Care Team Providers Care Guidance Secretary Name Role Phone Jon Webb MD Primary Care Provider [phone] Source Comments [facility],non-owned Affiliates and Associated Physician Practices is amultiple site organization consisting of ambulatory clinics and hospital sitesin [place], [place], [place] and [place]. This disclosure is being madepursuant to the Care Everywhere program and may not contain all information available regarding this patient. Last updated 18.[facility] Medications * Be aware that medications may [...] Orientation Not on file Plan of Treatment Not on file Care Teams Guidance Secretary Relationship Specialty Start Date End Date Jon Webb MD [address] [place] [place] [address] [facility] - General 04/11/20
--- OUTSIDE RECORDS SUMMARY | 2024-09-22 18:41 | XMS_ITS | Patient Health Summary ---
Author Organization [facility] Address [address] [place] [address] Care Team Providers Care Head Of Insight Name Role Phone Jon Webb MD Primary Care Provider [phone] Note from [facility],non-owned Affiliates and Associated Physician Practices is amultiple site organization consisting of ambulatory clinics and hospital sitesin [place], [place], [place] and [place]. This disclosure is being madepursuant to the Care Everywhere program and may not contain all information available regarding this patient. Last updated 18.[facility] Medications * Be aware that medications may not be up to date on this document. Alwaysverify current medications with the patient. * traMADol (ULTRAM) 50 MG tablet Take 40 mg by mouth every 6 hours as needed. 1-2 Tablets By Mouth Every 6 Hours as needed Social History Tobacco Use Types Packs/Day Years Used Date Smoking Tobacco: Never Assessed Sex and Gender Information Value Date Recorded Sex Assigned at Not on file Gender Identity Not on file Sexual Orientation Not on file Procedures * XR FINGER(S) LEFT(Performed 01/12/2011) Performed for Pain in soft tissues of limb Results * XR FINGER(S) LEFT (01/12/2011 9:38 AM CDT) Anatomical Region Laterality Modality Upper Extremity, Wrist / Hand Ra diographic Imaging 01/12/2011 12:2 7 PM CDT Impressions 01/12/2011 12:38 PM CDT Moderate degenerative change is present at the first carpal metacarpal articulation. Narrative 01/12/2011 12:38 PM CDT INDICATION: Left thumb pain. FINDINGS: Three views of the left thumb are submitted. There is mild to moderate degenerative change at the first carpal metacarpal articulation manifested as joint space narrowing and osteophyte production at the greater multangular bone both medially and laterally. The first metacarpal is mildly subluxed laterally. There is mild joint space narrowing at the triscaphe joint without significant osteophyte formation. No fracture or dislocation is seen. Procedure Note Mattie Gastelum MD - 01/12/2011 INDICATION: Left thumb pain. FINDINGS: Three views of the left thumb are submitted. There is mild to moderate degenerative change at the first carpal metacarpal articulation manifested as joint space narrowing and osteophyte production at the greater multangular bone both medially and laterally. The first metacarpal is mildly subluxed laterally. There is mild joint space narrowing at the triscaphe joint without significant osteophyte formation. No fracture or dislocation is seen. IMPRESSION Moderate degenerative change is present at the first carpal metacarpal articulation. S. Garth Cota MD DIAGNOSTIC IMAGING O [facility] Care Teams Head Of Insight Relationship Specialty Start Date End Date Jon Webb MD [address] [place] [phone] PCP - General 04/11/20
--- OUTSIDE RECORDS SUMMARY | 2024-09-22 18:41 | XMS_ITS | Encounter Summary ---
Author Organization [facility] Address [address] [place] [address] Care Team Providers Care Hardware Engineering Manager Name Role Phone Unavailable Primary Care Provider Unavailabl e Reason for Visit * Reason Onset Date Comments MEDICATION REFILL 09/07/2011 Encounter Details Date Type Department Care Team (Late st Contact Info) Description 09/07/2011 Refill [facility] [address] [address] [place] [address] [address] MEDICATION REFILL Social History Tobacco Use Types Packs/Day Years Used Date Smoking Tobacco: Never Assessed Sex and Gender Information Value Date Recorded Sex Assigned at Not on file Gender Identity Not on file Sexual Orientation Not on file documented as of this encounter Plan of Treatment Not on file documented as of this encounter Visit Diagnoses Not on filedocumented in this encounter
--- OUTSIDE RECORDS SUMMARY | 2024-09-22 18:41 | XMS_ITS ---
Author Organization [facility] Address [address] [place] [address] Care Team Providers Care Wharf Laborer Name Role Phone Tamia LEHMAN, Murphy Primary Care Provider Unavaila Muriel Lopez Unavailable [phone] ZZ-Migration, Provider Unavailable Unavailab le [facility] Encounter Medications Medication SIG (Take, Route, Frequency, Duration) Notes Start Date End Date Status Biotin 1000 MCG 1 tab(s) orally once a day Active Coenzyme Q10 300 MG 1 cap(s) orally once a day Active Vitamin D3 50 MCG (2000 UT) 1 tab(s) orally once a day Active Rockwall Thyroid 60 MG 1 tab(s) orally once a day Active Atorvastatin Calcium 20 MG 1 tab(s) orally once a day Active SIT (TRADITIONAL) VARIABLE PER SCHEDULE SC PER SCHEDULE for TO BE DETERMINED *Please review for potential replacement for e-prescription and drug interaction check* Active metFORMIN HCl 500 MG 1 tab(s) orally 2 times a day Active Azelastine HCl 137 MCG/SPRAY 2 spray(s) intranasally 2 times a day for 30 day(s) 01/19/2022 Active SIT (TRADITIONAL) VARIABLE PER SCHEDULE SC PER SCHEDULE for TO BE DETERMINED *Please review for potential replacement for e-prescription and drug interaction check* Active Nasacort Allergy 24HR 55 MCG/ACT 2 spray(s) intranasally once a day for 30 day(s) Active PREGNENOLONE, 25 G *Please revie w for potential replacement for e-prescription and drug interaction check* Active NASAL WASHES N/A DIRECTED INTRANASALLY NEEDED for 30 *Please review for potential replacement for e-prescription and drug interaction check* Active Keri Allergy 180 MG 1 tab(s) orally once a day Active Auvi-Q 0.3 MG/0.3ML 0.3 mg intramuscular ly once for 1 dose(s) Active Encounters Encounter Location Date Provider Diagnosis [facility] - [address] [place] [address] 02/25/2024 Provider DavonZ-Migration Allergic rhinitis due to pollen J30.1 and Chronic cough R05.3 Assessments Encounter Date Diagnosis (ICD Code) Assessment Notes Treatment Notes Treatment Clinical Notes Section Notes 02/25/2024 Allergic rhinitis due to pollen (ICD-10 - J30.1) 02/25/2024 Chronic cough (ICD-10 - R05.3) Plan Of Treatment Medication Medication Name Sig Start Date Stop Date Notes Biotin 1000 MCG 1 tab(s) orally once a day Coenzyme Q10 300 MG 1 cap(s) orally once a day Vitamin D3 50 MCG (1999) 1 tab(s) orally once a day Rockwall Thyroid 60 MG 1 tab(s) orally onc e a day Atorvastatin Calcium 20 MG 1 tab(s) orally once a day SIT (TRADITIONAL) VARIABLE PER SCHEDULE SC PER SCHEDULE for TO BE DETERMINED *Please review for potential replacement for e-prescription and drug interaction check* metFORMIN HCl 500 MG 1 tab(s) orally 2 t imes a day Azelastine HCl 137 MCG/SPRAY 2 spray(s) intranasally 2 times a day for 30 day(s) 01/19/2022 PREGNENOLONE, 25 G *Pleas e review for potential replacement for e-prescription and drug interaction check* NASAL WASHES N/A DIRECTED INTRANAS ALLY NEEDED for 30 *Please review for potential replacement for e-prescription and drug interaction check* Keri Allergy 180 MG 1 tab(s) orally once a day Auvi-Q 0.3 MG/0.3ML 0.3 mg intramuscular ly once for 1 dose(s) Progress Notes * Lila RODRIGUEZDOB:1960 ( 63 yo F)Acc No.[id number]:02/25/2024 Patient:?Lila RODRIGUEZ Provider:?Provider Migration :1960???Age:63 Y???Sex:Female D ate:02/25/2024 Address:[facility] [address], [facility] Pcp:Murphy Cantrell MD Subjective: * Chief Complaints: * ?[facility] * Medical History:? * Medications:?Taking Nasacort Allergy 24HR 55 MCG/ACT Aerosol 2 spray(s) intranasally once a day , Taking SIT (TRADITIONAL) VARIABLE SEE RECORD PER SCHEDULE SC PER SCHEDULE , Notes to Pharmacist: *Please review for potential replacement for e-prescription and drug interaction check* Objective: * Vitals:? Assessment: * Assessment: 1.?Allergic rhinitis due to pollen - J30.1 (Primary)???2.?Chronic cough - R05.3??? Plan: * Treatment: 2.?Chronic cough? Start Azelastine HCl Solution, 137 MCG/SPRAY, 2 spray(s), intranasally, 2 times a day, 30 day(s), 1, Refills 5.?? 3.?Others? Continue metFORMIN HCl Tablet, 500 MG, 1 tab(s), orally, 2 times a day;?Continue Rockwall Thyroid Tablet, 60 MG, 1 tab(s), orally, once a day;?Continue Atorvastatin Calcium Tablet, 20 MG, 1 tab(s), orally, once a day;?Continue Coenzyme Q10 Capsule, 300 MG, 1 cap(s), orally, once a day;?Continue Vitamin D3 Tablet, 50 MCG (2000 UT), 1 tab(s), orally, once a day;?Continue Biotin Tablet, 1000 MCG, 1 tab(s), orally, once a day;?Continue PREGNENOLONE, 25 G, Notes to Pharmacist: *Please review for potential replacement for e-prescription and drug interaction check*.?? * Billing Information: * Visit Code:? * Procedure Codes:? * Electronic signature of Radha GARCIA-Migration on 09/22/2024 at 06:40 PM MOLDING ROOM SUPERVISOR Sign off status: Pending * Provider:?Provider Migration Date:?02/24 Generated for Deejay saleem/Brynn/eTaniasmitting on:?09/22/2024 06:40 PM MOLDING ROOM SUPERVISOR
--- OUTSIDE RECORDS SUMMARY | 2024-09-22 18:42 | XMS_ITS | Continuity of Care Document ---
Author Organization [facility] Address [address] [place] [address] Phone Care Team Providers Care Soda Dialyzer Name Role Phone Luke Carr DO Unavailable Unavailable Advance Directives Directive Yes / No Effective Date File Name No Information Encounters Encounter Description Practice Location Reason(s) For Visit Diagnoses Date Provider Providers Copied on Encounter [facility], [address], [place], [place], [id number], [place] tel:[phone] [facility] No Information Bruno Villanueva. [address] [place], [address], [place]. tel:[phone] Referring Provider: Jon Webb, [address] [place] [address], [address]. tel:[phone] Family History Family Member Type Diagnosis Age At Onset No Information Payers Payer name Insurance type Covered alliance party ID Authoriza tion(s) [facility] [id number] Social History Type Description Quantity Date Captured Comments Sex Female Smoking Status No Information Chief Complaint And Reason For Visit No Information Reason For Referral Reason For Referral No Information History Of Present Illness Encounter Date Complaint History Of Prese nt Illness No Information Functional Status Date Functional Assessmen t No Information Instructions Date Instruction Additional Infor mation No Information Assessments Type Assessment Date No Information Patient Care Teams Name Effective Dates (start - stop) Status Members No Information
--- OUTSIDE RECORDS SUMMARY | 2024-09-22 18:42 | XMS_ITS | Encounter Summary ---
Author Organization [facility] Address [address] [facility] [place] [address] Care Team Providers Care Furniture Assembler Name Role Phone Unavailable Primary Care Provider Unavailabl e Encounter Details Date Type Department Care Team (Latest Contact Info) Description 01/12/2011 9:23 AM CDT - 01/12/2011 11:59 PM CDT Hospital Encounter [facility] Imaging Services - Radiology [address] [place] [address] [place] [address] [facility] [address] [place] [address] Radiology Diagnostic Discharge Disposition: Home or Self Care Social History Tobacco Use Types Packs/Day Years Used Date Smoking Tobacco: Never Assessed Sex and Gender Information Value Date Recorded Sex Assigned at Not on file Gender Identity Not on file Sexual Orientation Not on file documented as of this encounter Miscellaneous Notes * Miscellaneous Scans - Document, Scanned - 01/13/2011 8:56 AM CDT * Miscellaneous Scans - Document, Scanned - 01/13/2011 7:02 AM CDT documented in this encounter Plan of Treatment Not on file documented as of this encounter Procedures Procedure Name Priority Date/Time Associated Diagnosis Comments XR FINGER(S) LEFT Routine 01/12/2011 9:3 8 AM CDT Pain in soft tissues of limb documented in this encounter Results * XR FINGER(S) LEFT (01/12/2011 9:38 [...] present at the first carpal metacarpal articulation. Francisco Cota MD DIAGNOSTIC IMAGING [facility] documented in this encounter Visit Diagnoses Diagnosis Pain in limb documented in this encounter
--- OUTSIDE RECORDS SUMMARY | 2024-09-22 19:46 | XMS_ITS | Clinical Summary ---
Author Organization [facility] Address [address] [facility] [place] [address] Care Team Providers Care Operating Engineer Name Role Phone Jon Webb MD Primary Care Provider [phone] Source Comments [facility],non-owned Affiliates and Associated Physician Practices is amultiple site organization consisting of ambulatory clinics and hospital sitesin [place], [place], [place] and [place]. This disclosure is being madepursuant to the Care Everywhere program and may not contain all information available regarding this patient. Last updated 18.[facility] Medications * Be aware that medications may [...] age to complete this topic Care Teams Operating Engineer Relationship Specialty Start Date End Date Jon Webb MD [address] [place] [address] PCP - General 04/11/20
--- OUTSIDE RECORDS SUMMARY | 2024-09-22 19:46 | XMS_ITS | Referral Summary ---
Author Organization [facility] Address [address] [place] [address] Care Team Providers Care Front End Alignment Specialist Name Role Phone Jon Webb MD Primary Care Provider [phone] Source Comments [facility],non-owned Affiliates and Associated Physician Practices is amultiple site organization consisting of ambulatory clinics and hospital sitesin [place], [place], [place] and [place]. This disclosure is being madepursuant to the Care Everywhere program and may not contain all information available regarding this patient. Last updated 18.[facility] Medications * Be aware that medications may [...] of Treatment Not on file Care Teams Front End Alignment Specialist Relationship Specialty Start Date End Date Jon Webb MD [address] [place] [address] [facility] - General 04/11/20
--- OUTSIDE RECORDS SUMMARY | 2024-09-22 19:46 | XMS_ITS | Continuity of Care Document ---
Author Organization [facility] Address [address] [place] [address] Phone Care Team Providers Care Endocrinology Physician Name Role Phone Luke Carr DO Unavailable Unavailable Advance Directives Directive Yes / No Effective Date File Name No Information Encounters Encounter Description Practice Location Reason(s) For Visit Diagnoses Date Provider Providers Copied on Encounter [facility], [address], [place], [place], [id number], [place] tel:[phone] [facility] No Information Bruno Villanueva. [address] [place], [address], [place]. tel:[phone] Referring Provider: Jon Webb, [address] [place] [address], [address]. tel:[phone] Family History Family Member Type Diagnosis Age At Onset No Information Payers Payer name Insurance type Covered democrat ID Authoriza tion(s) [facility] SOI CI [id number] Social History Type Description Quantity Date Captured [...]
--- OUTSIDE RECORDS SUMMARY | 2024-09-22 19:46 | XMS_ITS | Encounter Summary ---
Author Organization [facility] Address [address] [facility] [place] [address] Care Team Providers Care Deputy General Counsel Name Role Phone Unavailable Primary Care Provider Unavailabl e Encounter Details Date Type Department Care Team (Latest Contact Info) Description 01/12/2011 9:23 AM CDT - 01/12/2011 11:59 PM CDT Hospital Encounter [facility] Imaging Services - Radiology [address] [place] [address] [place] [address] [facility] [address] [place] [address] Radiology Diagnostic Discharge Disposition: Home or Self [...]
--- OUTSIDE RECORDS SUMMARY | 2024-09-22 19:46 | XMS_ITS | Patient Health Summary ---
Author Organization [facility] Address [address] [facility] [place] [address] Care Team Providers Care Museum Security Chief Name Role Phone Jon Webb MD Primary Care Provider [phone] Note from [facility],non-owned Affiliates and Associated Physician Practices is amultiple site organization consisting of ambulatory clinics and hospital sitesin [place], [place], [place] and [place]. This disclosure is being madepursuant to the Care Everywhere program and may not contain all information available regarding this patient. Last updated 18.[facility] Medications * Be aware that medications may [...] S. Garth Cota MD DIAGNOSTIC IMAGING [facility] Care Teams Museum Security Chief Relationship Specialty Start Date End Date Jon Webb MD [address] [place] [address] PCP - General 04/11/20
--- OUTSIDE RECORDS SUMMARY | 2024-09-22 19:46 | XMS_ITS | Encounter Summary ---
Author Organization [facility] Health Address [address] [place] [address] Care Team Providers Care Senior Merchandiser Name Role Phone Unavailable Primary Care Provider Unavailabl e Reason for Visit * Reason Onset Date Comments MEDICATION REFILL 09/07/2011 Encounter Details Date Type Department Care Team (Late st Contact Info) Description 09/07/2011 Refill [facility] Orthopedics [id number] [address] [place] [id number] [address] MEDICATION REFILL Social History Tobacco Use Types [...]
== END 2024-09-15 17:25 | disposition home or self-care (01) ==
LOC: ANHED 13:01 → ANHIMU 16:44
PROVIDERS: Emergency Provider Emergency Medicine; PCP Family Medicine
DX: I48.91 Unspecified atrial fibrillation (principal); I10 Essential (primary) hypertension; E11.9 Type 2 diabetes mellitus without complications; E78.2 Mixed hyperlipidemia; E03.9 Hypothyroidism, unspecified; E88.810 Metabolic syndrome; K21.9 Gastro-esophageal reflux disease without esophagitis; Z87.891 Personal history of nicotine dependence; Z90.710 Acquired absence of both cervix and uterus; R94.31 Abnormal electrocardiogram [ECG] [EKG]; Z79.85 Long-term (current) use of injectable non-insulin antidiabetic drugs; Z79.899 Other long term (current) drug therapy
CPT/HCPCS: 36415; 71045; 80053; 83880; 84443; 84484; 85025; 85610; 85730; 93005; 96372; 96374; 99284; A9270; J1650

== ENCOUNTER 2024-12-05 09:34 | Outpatient (CLI) | payer OTHER, SELFPAY ==
--- NOTE | ~2024-12-05 | XR_ITS ---
[id number] Ordering provider: Marnie Payne MD History: . UNSPECIFIED OSTEOARTHRITIS . Comparison: None. FINDINGS: BONES: No acute fracture or dislocation. JOINT SPACES: Narrowing of the medial compartment. SOFT TISSUES: Normal. IMPRESSION: No acute osseous abnormality left knee. Mild osteoarthritic changes. Reviewed, dictated and finalized at location A.
--- NOTE | ~2024-12-05 | XR_ITS ---
3 VIEWS LUMBAR SPINE Ordering provider: Marnie Payne MD History: . UNSPECIFIED OSTEOARTHRITIS . Comparison: June 20, 2023 FINDINGS: VERTEBRAL BODIES: No visible fracture or subluxation. Degenerative changes of the spine. DISK SPACES: Normal. SOFT TISSUES: Atherosclerotic changes of the aorta. IMPRESSION: No acute osseous abnormality lumbar spine. Mild degenerative changes. Reviewed, dictated and finalized at location A.
--- NOTE | ~2024-12-05 | XR_ITS ---
[id number] Ordering provider: Marnie Payne MD History: . UNSPECIFIED OSTEOARTHRITIS . Comparison: None. FINDINGS: BONES: No acute fracture or dislocation. JOINT SPACES: Slight narrowing of the medial compartment. Marginal osteophytes in the patella. SOFT TISSUES: Normal. IMPRESSION: No acute osseous abnormality right knee. Mild osteoarthritic changes. Reviewed, dictated and finalized at location A.
== END 2024-12-05 09:35 | disposition home or self-care (01) ==
PROVIDERS: PCP Family Medicine; Visit Provider Internal Medicine
DX: M47.16 Other spondylosis with myelopathy, lumbar region (principal); M51.369 Other intervertebral disc degeneration, lumbar region without mention of lumbar back pain or lower extremity pain; M17.0 Bilateral primary osteoarthritis of knee
CPT/HCPCS: 72100; 73560

== ENCOUNTER 2024-12-14 08:45 | Outpatient (CLI) | payer OTHER, SELFPAY ==
--- OUTSIDE RECORDS SUMMARY | 2024-12-14 08:49 | XMS_ITS | Continuity of Care Document ---
Author Organization [facility] Address [address] [place] [address] Phone Care Team Providers Care Traffic Safety Administrator Name Role Phone Luke Carr DO Unavailable Unavailable Advance Directives Directive Yes / No Effective Date File Name No Information Encounters Encounter Description Practice Location Reason(s) For Visit Diagnoses Date Provider Providers Copied on Encounter [facility], [address], [place], [place], [id number], [place] tel:[phone] [facility] No Information Bruno Villanueva. [address] [place], [address], [place]. tel:[phone] Referring Provider: Jon Webb, [address] [place] [address], [address]. tel:[phone] Family History Family Member Type Diagnosis Age At Onset No Information Payers Payer name Insurance type Covered republican ID Authoriza tion(s[facility] [id number] Social History Type Description Quantity Date Captured [...]
--- OUTSIDE RECORDS SUMMARY | 2024-12-14 08:49 | XMS_ITS | Clinical Summary ---
Author Organization [facility] Address [address] [place] [address] Care Team Providers Care Loader Magazine Grinder Name Role Phone Jon Webb MD Primary Care Provider [phone] Source Comments [email or web address],non-owned Affiliates and Associated Physician Practices is amultiple site organization consisting of ambulatory clinics and hospital sitesin [place], [place], [place] and [place]. This disclosure is being madepursuant to the Care Everywhere program and may not contain all information available regarding this patient. Last updated [email or web address] Medications * Be aware that medications may [...] VACCINE (1 - 2023-2 5 season) 2024 DEPRESSION SCREENING 09/12/2024 INFLUENZA VACCINE (Season Ended) 2025 Respiratory Syncytial Virus (RSV) Vaccine Pt: or [...] to complete this topic MENINGOCOCCAL (Group B) VACC INE SHARED DECISION-MAKING Aged Out No longer eligibl e based on patient's age to complete this topic MENINGOCOCCAL GROUPS A/C/Y/W VACCINE Aged Out No longer eligible b ased on patient's age to complete this topic PNEUMOCOCCAL VACCINE Aged Out No long er eligible based on patient's age to complete this topic Care Teams Loader Magazine Grinder Relationship Specialty Start Date End Date Jon Webb MD [address] [place] [id number] PCP - General 04/11/20
[2024-12-14 14:04] LABS: Basophils Absolute Auto 0.1 K/mm3 (0.0-0.1); Eosinophils Absolute Auto 0.1 K/mm3 (0-0.3); Eosinophils Percent Auto 2.1 % (0-4.4); Hematocrit 44.2 % (37.0-47.0); Hemoglobin 14.8 g/dL (12.0-15.0); Immature Granulocyte Absolute 0.01 K/mm3 (0.00-0.031); Immature Granulocyte Percent A 0.2 % (0-0.5); Lymphocytes Absolute Auto 1.92 K/mm3 (0.9-3.2); Lymphocytes Percent Auto 39.7 % (18.3-44.2); Mean Corpuscular HGB Conc 33.5 g/dl (32-36); Mean Corpuscular Hemoglobin 30.5 pg (26-34); Mean Corpuscular Volume 90.9 fl (80-100); Mean Platelet Volume 10.3 fl (7.4-10.4); Monocytes Absolute Auto 0.4 K/mm3 (0.1-0.6); Monocytes Percent Auto 7.9 % (2.6-8.5); Neutrophils Absolute Auto 2.4 K/mm3 (1.3-6.7); Neutrophils Percent Auto 49.1 % (45.5-73.1); Platelet Count Result 336 k/mm3 (150-375); Red Blood Count 4.86 M/mm3 (4.2-5.4); Red Cell Distribution Width 12.3 % (11.5-14.5); White Blood Count 4.8 K/mm3 (4.5-10.0)
[2024-12-14 14:06] LABS: Add Urine Microscopic? NO; Appearance Urine Clear (Clear); Bilirubin Urine Negative (Negative); Blood Urine Negative (Negative); Color Urine Yellow (Yellow); Glucose Urine UA Negative (Negative); Ketones Urine Negative (Negative); Leukocyte Esterase Ur Negative LEU/UL (Negative); Nitrate Urine Negative (Negative); Protein Urine Negative (Negative); Specific Grav Ur 1.019 (1.001-1.035); Urobilinogen Urine 0.2 mg/dL (<2.0)
[2024-12-14 14:18] LABS: Immunoglobulin A 95 mg/dL (70-400)
[2024-12-14 14:33] LABS: Erythrocyte Sedimentation Rate 7 mm/hr (0-20)
[2024-12-14 15:15] LABS: Alanine Aminotransferase 40 U/L (6-35); Albumin Level 4.7 g/dL (3.5-5.1); Alkaline Phosphatase 60 U/L (38-126); Anion Gap 8 mmol/L (4-12); Aspartate Amino Transferase 48 U/L (14-36); Bilirubin,Total 0.5 mg/dL (0.2-1.3); Blood Urea Nitrogen 8 mg/dL (7-17); CRP < 0.5 mg/dL (<1.0); Calcium 9.4 mg/dL (8.4-10.2); Carbon Dioxide 29 mmol/L (22-30); Chloride 100 mmol/L (98-107); Estimated Glomerular Filt Rate > 60; Glucose 79 mg/dL (65-110); Potassium 4.1 mmol/L (3.4-5.0); Sodium 137 mmol/L (137-145)
[2024-12-17 17:09] LABS: Cyclic Citrullinated Peptide <16 UNITS
[2024-12-17 17:09] LABS: Cyclic Citrullinated Peptide <16 UNITS
== END 2024-12-14 08:46 | disposition home or self-care (01) ==
LOC: ANHGOSHLAB 08:46
PROVIDERS: PCP Family Medicine; Visit Provider Internal Medicine
DX: M47.16 Other spondylosis with myelopathy, lumbar region (principal); M19.90 Unspecified osteoarthritis, unspecified site
CPT/HCPCS: 36415; 80053; 81003; 82784; 84550; 85025; 85652; 86140; 86200; 86430

== ENCOUNTER 2025-01-15 08:00 | Outpatient (RCR) | payer OTHER, SELFPAY ==
--- NOTE | 2024-12-04 13:13 | OPREHPOC ---
Outpatient Therapy Plan of Care This is a Multidisciplinary Plan of Care that may contain components documented by all disciplines (PT, OT, and ST.) PT Problem 1 PT Problem #1 Knowledge Deficit PT Goal 1 Goal / Goal Update [place] with HEP Target Visit 2 PT Goal 2 Goal / Goal Update Report no pain greater than 2/10 for 2 consecutive weeks Target Visit 4 PT Problem 2 PT Problem #2 Impaired Range of Motion PT Goal 1 Goal / Goal Update 1. Achieve terminal right knee extension 2. Improve R hip abduction to 40 degrees 3. Demonstrate minimal to no piriformis restriction bilaterally Target Visit 4 PT Problem 3 PT Problem #3 Impaired Strength PT Goal 1 Goal / Goal Update Improve fracisco hip abduction strength to 4/5 to improve lateral stability of core with gait Target Visit 4
--- NOTE | 2024-12-04 13:14 | PTOPEVAL1 ---
Assessment and note entered by Jimy Andrade, PT Evaluation Information Assessment Status Evaluation Diagnosis M47.16 ICD-10 Condition Codes (PT) Pain in low back M54.50 Onset 2022 Subjective Information Reports that she has a history of right knee issues and back pain. She has been having trouble with daily tasks and cleaning. She walks about 2 miles daily but is is a lot more difficult getting home. Pain is not radicular at this time. All localized to the right lower side. Denies left side low back issues. She has a history of steroid injections which helped very temporarily. Reported Pain Level Pain Score 0: Self Report Assessment PT Clinical Summary Patient presents with signs and symptoms of lumbar stenosis. She presents with objective deficits in knee extension, hip mobility, and core strength. All of these are contributing to biomechanical deficits altering gait and functional mobility and contributing to back pain. She will benefit from skilled therapy to address these deficits. Plan of Care Interventions Electrical Stimulation,Gait Training,Manual Therapy,Neuro Re-education,Therapeutic Activities, Therapeutic Exercise PT Services Indicated Yes Treatment Frequency and 1x/week for 4 visits Duration These treatments will address the objective and functional deficits as defined above. The patient will be advanced safely and appropriately in order for the patient to progress towards his/her prior level of function. Additional exercises will be introduced and as well as a comprehensive home exercise program upon discharge, if needed, ?to ensure carryover of functional gains achieved in the clinic. This treatment plan has been reviewed and agreement upon by the patient.
--- NOTE | 2025-01-15 08:34 | OPREHPOC ---
Outpatient Therapy Plan of Care This is a Multidisciplinary Plan of Care that may contain components documented by all disciplines (PT, OT, and ST.) PT Problem 1 PT Problem #1 Knowledge Deficit PT Goal 1 Goal / Goal Update [place] with HEP Target Visit 2 Progress Met PT Goal 2 Goal / Goal Update Report no pain greater than 2/10 for 2 consecutive weeks Target Visit 4 Progress Met PT Problem 2 PT Problem #2 Impaired Range of Motion PT Goal 1 Goal / Goal Update 1. Achieve terminal right knee extension - Not met 2. Improve R hip abduction to 40 degrees 3. Demonstrate minimal to no piriformis restriction bilaterally Target Visit 4 Progress Partially Met PT Problem 3 PT Problem #3 Impaired Strength PT Goal 1 Goal / Goal Update Improve fracisco hip abduction strength to 4/5 to improve lateral stability of core with gait Target Visit 4 Progress Met
--- NOTE | 2025-01-15 08:34 | PTOPDC ---
Assessment and note entered by Jimy Andrade, PT Evaluation Information Assessment Status Discharge Diagnosis M47.16 ICD-10 Condition Codes (PT) Pain in low back M54.50 Onset 2022 Subjective Information Patient reports that overall she is doing very well. Has returned to exercise and pain is completely controlled. Working on retiring to [place] workout and at this point has not had issues. Requests discharge at this time. Reported Pain Level Pain Score 0: Self Report Assessment PT Clinical Summary Patient met all goals for therapy at this time and is suitable for discharge to [facility]. Patient continues to show some minor terminal knee extension deficits which she will continue to work on through capsular stretching. Patient compliant with HEP. Plan of Care PT Services Indicated Yes
== END 2025-02-26 11:21 | disposition home or self-care (01) ==
LOC: ANHGOSHPT 08:00
PROVIDERS: PCP Family Medicine
DX: M47.16 Other spondylosis with myelopathy, lumbar region (principal)
CPT/HCPCS: 97110; 97140; 97161; 97530

== ENCOUNTER 2025-03-07 15:14 | Outpatient (CLI) | payer OTHER, SELFPAY ==
--- NOTE | ~2025-03-07 | MM_ITS ---
EXAMINATION: MM screening [place] BI w jamilah HISTORY: Screening mammogram, family history of breast cancer in her mother. TECHNIQUE: Craniocaudal and mediolateral oblique 3-D tomosynthesis images were obtained and synthetic 2-D images were generated. CAD analysis was submitted and interpreted. COMPARISON: 03/01/2024, 02/23/2023, 02/19/2022, 01/06/2021 BREAST PARENCHYMAL COMPOSITION:Not Dense. There are scattered areas of fibroglandular density. FINDINGS: No suspicious mass, calcification, or architectural distortion are identified in either lashay ast to suggest malignancy. There has been no suspicious interval change. IMPRESSION: No mammographic evidence of malignancy. Recommend routine screening mammography in one year. BI-RADS Category 1: Negative Reviewed, dictated and finalized at [facility].
== END 2025-03-07 15:15 | disposition home or self-care (01) ==
LOC: ANHIMG 15:23
PROVIDERS: PCP Family Medicine; Visit Provider Obstetrics & Gynecology
DX: Z12.31 Encounter for screening mammogram for malignant neoplasm of breast (principal)
CPT/HCPCS: 77063; 77067